=== PATIENT | male | born 1960 | race Caucasian/White ===

== ENCOUNTER 2018-02-10 09:20 | Emergency (ER) | payer SELFPAY ==
[2018-02-10] MEDS ORDERED: NS 0.9% 1000 ML* 1,000 ML IV ONE (09:56)
[2018-02-10] MEDS ORDERED: Pantoprazole IV* 40 MG IV ONE (09:56)
[2018-02-10] MEDS ORDERED: Pantoprazole IV* 80 MG in NS 0.9% 250 ML* 250 ML IV SCH (10:00)
[2018-02-10 11:03] LABS: Hematocrit 16 % (42-52); Hemoglobin 5.7 g/dl (14.0-18.0); Mean Corpuscular HGB Conc 34 g/dl (31-36); Mean Corpuscular Hemoglobin 33 pg (27-31); Mean Corpuscular Volume 97 fL (80-94); Mean Platelet Volume 7.5 um3 (7.4-10.4); Platelet Count 259 10^3/ul (150-450); Red Blood Count 1.69 10^6/ul (4.00-5.40); Red Cell Distribution Width 14 % (10.5-15); White Blood Count 15.1 10^3/ul (3.5-10.8)
[2018-02-10 11:15] LABS: EGFR Non-African American 85.4 (>60)
[2018-02-10 11:42] LABS: INR 0.89 (0.77-1.02)
[2018-02-10 11:43] LABS: ABS Basophils 0 10^3/ul (0-0.2); ABS Eosinophils 0 10^3/ul (0-0.6); ABS Lymphocytes 0.8 10^3/ul (1.0-4.8); ABS Monocytes 0.8 10^3/ul (0-0.8); ABS Neutrophils 13.4 10^3/ul (1.5-7.7); ABS Nucleated RBC 0 10^3/ul; Eosinophil % 0 % (0-6); Lymphocyte % 5.3 % (25-47); Nucleated Red Blood Cells % 0
--- NOTE | 2018-02-10 15:21 | ED ---
Wiliam Jarrell Tariq, scribed for Felipe Feliciano MD on 02/10/18 at 1055 . Syncope/Near Syncope - HPI Summary HPI Summary: A 57 y/o male pt KHANH presents to the ED s/p near syncopal episode after standing up. Pt reported for the past couple days he has felt dizzy. For the past week he has had black stools and had bloody vomit this morning. Additionally, he has intermittent abdominal pain. He was wondering if he was anemic. SHx ETOH, few beers a day. No allergies. - History Of Current Complaint Chief Complaint: EDSyncope Time Seen by Provider: 02/10/18 09:36 Hx Obtained From: Patient Onset/Duration: Sudden Onset, Lasting Days, Still Present Timing: Intermittent Episode Lasting Aggravating Factor(s): Position Change - Standing up Alleviating Factor(s): Nothing Associated Signs And Symptoms: Dizzy, Vomiting - Bloody vomit., Other - Melena - Allergies/Home Medications Allergies/Adverse Reactions: Allergies Allergy/AdvReac Type Severity Reaction Status Date / Time No Known Allergies Allergy Verified 02/10/18 09:33 Home Medications: Home Medications Aspirin/Caffeine [Latricia Back & Body Pain Ex] 1 tab PO DAILY PRN 02/10/18 [ History Confirmed 02/10/18] Calcium Carbonate CHEW TAB* [Tums*] 500 mg PO BID 02/10/18 [History Confirmed ] Naproxen Sodium [Aleve] 220 mg PO DAILY PRN 02/10/18 [History Confirmed 02/10/18 ] PMH/Surg Hx/FS Hx/Imm Hx Endocrine/Hematology History: Denies: Hx Diabetes Cardiovascular History: Denies: Hx Congenital Heart Disease, Hx Congestive Heart Failure, Hx Hypertension Infectious Disease History: No Infectious Disease History: Denies: Traveled Outside the [place] in Last 30 Days - Family History Known Family History: Positive: Other - [place] - Social History Alcohol Use: Daily Alcohol Amount: 3 beers/day Substance Use Type: Reports: Marijuana Substance Use Comment - Amount & Last Used: daily Smoking Status (MU): Light Every Day Tobacco Smoker Review of Systems Positive: Abdominal Pain - Intermittent, Vomiting - Bloody vomit, Other - Melena Neurological: Other - Dizziness Positive: Syncope - Near syncopal All Other Systems Reviewed And Are Negative: Yes Physical Exam - Summary Physical Exam Summary: Appearance: The patient is well-nourished in no acute distress and in no acute pain. Skin: Pale HEENT: The head is normocephalic and atraumatic. The pupils are equal and reactive. The conjunctivae are clear and without drainage. Nares are patent and without drainage. Mouth reveals moist mucous membranes and the throat is without erythema and exudate. The external ears are intact. The ear canals are patent and without drainage. The tympanic membranes are intact. Neck: The neck is supple with full range of motion and non-tender. There are no carotid bruits. There is no neck vein distension. Respiratory: Chest is non-tender. Lungs are clear to auscultation and breath sounds are symmetrical and equal. Cardiovascular: Heart rate is tachycardic. There is no murmur or rub auscultated. There is no peripheral edema and pulses are symmetrical and equal. Abdomen: Epigastric tenderness. There are normal bowel sounds heard in all four quadrants and there is no organomegaly palpated. Musculoskeletal: There is no back tenderness noted. Extremities are non-tender with full range of motion. There is good capillary refill. There is no peripheral edema or calf tenderness elicited. Neurological: Patient is alert and oriented to person, place and time. The patient has symmetrical motor strength in all four extremities. Cranial nerves are grossly intact. Deep tendon reflexes are symmetrical and equal in all four extremities. Psychiatric: The patient has an appropriate affect and does not exhibit any anxiety or depression. Triage Information Reviewed: Yes Vital Signs On Initial Exam: Initial Vitals Pulse Resp Pulse Ox 111 18 100 02/10/18 09:30 02/10/18 09:30 02/10/18 09:30 Vital Signs Reviewed: Yes Diagnostics - Vital Signs Vital Signs Temp Pulse Resp BP Pulse Ox 02/10/18 10:31 93 16 112/68 100 02/10/18 10:01 102 20 117/72 100 02/10/18 10:00 103 21 100 02/10/18 09:31 98.3 F 110 19 131/69 100 02/10/18 09:30 111 18 100 - Laboratory Lab Results: Lab Results 02/10/18 02/10/18 02/10/18 Range/Units 10:50 10:50 10:50 WBC 15.1 H (3.5-10.8) 10^3/ul RBC 1.69 L (4.00-5.40) 10^6/ul Hgb 5.7 L* (14.0-18.0) g/dl Hct 16 L (42-52) % MCV 97 H (80-94) fL MCH 33 H (27-31) pg MCHC 34 (31-36) g/dl RDW 14 (10.5-15) % Plt Count 259 (150-450) 10^3/ul MPV 7.5 (7.4-10.4) um3 Neut % (Auto) 89.1 H (38-83) % Lymph % (Auto) 5.3 L (25-47) % Irion % (Auto) 5.3 (0-7) % Eos % (Auto) 0 (0-6) % Baso % (Auto) 0.3 (0-2) % Absolute Neuts (auto) 13.4 H (1.5-7.7) 10^3/ul Absolute Lymphs (auto) 0.8 L (1.0-4.8) 10^3/ul Absolute Monos (auto) 0.8 (0-0.8) 10^3/ul Absolute Eos (auto) 0 (0-0.6) 10^3/ul Absolute Basos (auto) 0 (0-0.2) 10^3/ul Absolute Nucleated RBC 0 10^3/ul Nucleated RBC % 0 INR (Anticoag Therapy) 0.89 (0.77-1.02) APTT 29.1 (26.0-36.3) seconds Sodium 133 L (135-145) mmol/L Potassium 4.1 (3.5-5.0) mmol/L Chloride 101 (101-111) mmol/L Carbon Dioxide 26 (22-32) mmol/L Anion Gap 6 (2-11) mmol/L BUN 44 H (6-24) mg/dL Creatinine 0.92 (0.67-1.17) mg/dL Est GFR ( Amer) 109.8 (>60) Est GFR (Non-Af Amer) 85.4 (>60) BUN/Creatinine Ratio 47.8 H (8-20) Glucose 70 (70-100) mg/dL Calcium 7.8 L (8.6-10.3) mg/dL Total Bilirubin 0.20 (0.2-1.0) mg/dL AST 12 L (13-39) U/L ALT 7 (7-52) U/L Alkaline Phosphatase 36 (34-104) U/L Total Protein 4.8 L (6.4-8.9) g/dL Albumin 2.8 L (3.2-5.2) g/dL Globulin 2.0 (2-4) g/dL Albumin/Globulin Ratio 1.4 (1-3) Serum Alcohol < 10 (<10) mg/dL Blood Type Antibody Screen Crossmatch 02/10/18 Range/Units 10:50 WBC (3.5-10.8) 10^3/ul RBC (4.00-5.40) 10^6/ul Hgb (14.0-18.0) g/dl Hct (42-52) % MCV (80-94) fL MCH (27-31) pg MCHC (31-36) g/dl RDW (10.5-15) % Plt Count (150-450) 10^3/ul MPV (7.4-10.4) um3 Neut % (Auto) (38-83) % Lymph % (Auto) (25-47) % Irion % (Auto) (0-7) % Eos % (Auto) (0-6) % Baso % (Auto) (0-2) % Absolute Neuts (auto) (1.5-7.7) 10^3/ul Absolute Lymphs (auto) (1.0-4.8) 10^3/ul Absolute Monos (auto) (0-0.8) 10^3/ul Absolute Eos (auto) (0-0.6) 10^3/ul Absolute Basos (auto) (0-0.2) 10^3/ul Absolute Nucleated RBC 10^3/ul Nucleated RBC % INR (Anticoag Therapy) (0.77-1.02) APTT (26.0-36.3) seconds Sodium (135-145) mmol/L Potassium (3.5-5.0) mmol/L Chloride (101-111) mmol/L Carbon Dioxide (22-32) mmol/L Anion Gap (2-11) mmol/L BUN (6-24) mg/dL Creatinine (0.67-1.17) mg/dL Est GFR ( Amer) (>60) Est GFR (Non-Af Amer) (>60) BUN/Creatinine Ratio (8-20) Glucose (70-100) mg/dL Calcium (8.6-10.3) mg/dL Total Bilirubin (0.2-1.0) mg/dL AST (13-39) U/L ALT (7-52) U/L Alkaline Phosphatase (34-104) U/L Total Protein (6.4-8.9) g/dL Albumin (3.2-5.2) g/dL Globulin (2-4) g/dL Albumin/Globulin Ratio (1-3) Serum Alcohol (<10) mg/dL Blood Type A Positive Antibody Screen Negative Crossmatch See Detail Result Diagrams: 02/10/18 10:50 02/10/18 10:50 Lab Statement: Any lab studies that have been ordered have been reviewed, and results considered in the medical decision making process. - EKG 0942 Cardiac Rate: Tachycardia - 114 BPM EKG Rhythm: Sinus Tachycardia EKG Interpretation: No ischemic changes Course/Dx Course Of Treatment: Mr. Hurd presented to the emergency department with a complaint of near syncopy. He is had intermittent epigastric pain as well as black bowel movements for about a week. His morning he vomited elli blood. He was tachycardic on arrival and found to be quite anemic with microcytic indices. 2 units of typed and crossed packed red blood cells were administered while arrangements were made for transfer to [facility] with Dr. Acosta accepting. He remained stable here in the emergency department. We're unable to keep him here because we have no GI coverage today. - Diagnoses Provider Diagnoses: Upper gastrointestinal bleed - Physician Notifications Discussed Care of Patient With: Anu Acosta [facility] Time Discussed With Above Provider: 13:00 Instructed by Provider To: Other - Accepts pt for transfer - Critical Care Time Critical Care Time: 30-74 min Discharge - Sign-Out/Discharge Documenting (check all that apply): Discharge/Admit/Transfer - Transfer - Discharge Plan Condition: Stable Disposition: TRANS HIGHER LVL OF CARE FAC Referrals: No Primary Care Phys,NOPCP [Primary Care Provider] - - Billing Disposition and Condition Condition: STABLE Disposition: Trans Higher Lvl of Care Fac The documentation as recorded by the Wiliam palmer Tariq accurately reflects the service I personally performed and the decisions made by me, Felipe Feliciano MD.
== END 2018-02-10 15:46 | disposition short-term general hospital (02) ==
LOC: ED 09:20
DX: K92.2 Gastrointestinal hemorrhage, unspecified (principal); R42 Dizziness and giddiness; R11.10 Vomiting, unspecified; R55 Syncope and collapse; F17.210 Nicotine dependence, cigarettes, uncomplicated
CPT/HCPCS: 36415; 80053; 80320; 85025; 85610; 85730; 86850; 86900; 86901; 86922; 93005; 96374; 96375; 99285; G0480; P9040